=== PATIENT | female | born 1940 | race Caucasian/White ===

== ENCOUNTER → 2016-11-20 | Outpatient (CLI) | payer MEDICARE, BC ==
[~2016-11-20] MED LIST: ALBUTEROL MININEB NEB; ALBUTEROL0.63 MG/3 NEB; ALEVE; BENZONATATE PO; BONIVA150 MG PO; COMBIVENT INH14.7 GM INH; DEXAMETHASONE1 MG PO; DEXILANT60 MG PO; DUONEB 2.5-0.5 M3 ML NEB; LEVAQUIN PO; LEVAQUIN750 MG PO; NEBULIZER1 KI1 MC; OMEPRAZOLE10 MG PO; PREDNISONE PO; PRILOSEC PO; PRILOSEC20 M1 PO; SINGULAIR PO; SPIRIVA18 MCG INH; SYMBICORT INH; THEO-DUR300 MG PO; THEOPHYLLIN PO; TUDORZA PRESS400 MCG IH; ZYRTEC PO; [UNRECOGNIZED DRUG - OTHER] PO/SL
== END | disposition home or self-care (01) ==
LOC: CECH 11:58
DX: J44.9 Chronic obstructive pulmonary disease, unspecified (principal); R53.1 Weakness; I36.1 Nonrheumatic tricuspid (valve) insufficiency; I51.89 Other ill-defined heart diseases
CPT/HCPCS: 93306; 94060; 94726; 94729